=== PATIENT | male | born 1980 | race Caucasian/White ===

== ENCOUNTER 2017-12-13 23:11 | Emergency (ER) | payer OTHER ==
[~2017-12-13] VITALS: Ht 188 cm; Wt 97.5 kg
[~2017-12-13 23:11] MED LIST: MOBIC7.5 M1 PO; NORCO 5-325 TA1 EACH PO; ROBAXIN 750 MG750 MG PO
[2017-12-13] MEDS ORDERED: BYSTOLIC20 MG PO (23:22)
[2017-12-13] MEDS ORDERED: PERCOCET 7.5-31 EACH PO (23:46)
[2017-12-13] MEDS ORDERED: CLEOCIN HCL150 MG PO (23:46)
[2017-12-13] MEDS ORDERED: PERIDEX 0.12%473 M1 SWISH&SPIT (23:46)
[2017-12-14] MEDS ORDERED: CLONIDINE0.1 PO (01:22)
[2017-12-14 01:41] LABS: URINE BILIRUBIN NEGATIVE (Negative); URINE BLOOD NEGATIVE (Negative); URINE CLARITY CLEAR; URINE COLOR STRAW; URINE GLUCOSE-RANDOM NEGATIVE (Negative); URINE KETONES NEGATIVE (Negative); URINE LEUKOCYTES-REFLEX NEGATIVE (Negative); URINE NITRITE-REFLEX NEGATIVE (Negative); URINE PROTEIN NEGATIVE (Negative); URINE SPECIFIC GRAVITY <= 1.005 (1.005-1.030); URINE UROBILINOGEN 0.2 E.U./dl (0.2-1.0)
[2017-12-14 01:55] VITALS: BP 133/78
== END 2017-12-14 02:11 | disposition home or self-care (01) ==
LOC: M.ERS 23:11
PROVIDERS: Emergency Medicine
DX: K08.89 Other specified disorders of teeth and supporting structures (principal); J45.909 Unspecified asthma, uncomplicated

== ENCOUNTER 2018-07-16 21:57 | Emergency (ER) | payer OTHER ==
[~2018-07-16] VITALS: Ht 188 cm; Wt 93.0 kg
[~2018-07-16 21:57] MED LIST changes: +BYSTOLIC20 MG PO; +CLEOCIN HCL150 MG PO; +CLONIDINE0.1 PO; +PERCOCET 7.5-31 EACH PO; +PERIDEX 0.12%473 M1 SWISH&SPIT
[2018-07-16 22:10] VITALS: BP 169/118
[2018-07-16] MEDS ORDERED: PRINIVIL20 MG PO (22:12)
[2018-07-16] MEDS ORDERED: HYDROCODON-ACE1 EAC7 PO (22:20)
[2018-07-16] MEDS ORDERED: KEFLEX500 M1 PO (22:20)
== END 2018-07-16 22:32 | disposition home or self-care (01) ==
LOC: M.ERS 21:57
DX: K08.89 Other specified disorders of teeth and supporting structures (principal); J45.909 Unspecified asthma, uncomplicated